=== PATIENT | female | born 1990 | race Caucasian/White ===

== ENCOUNTER 2018-02-11 09:23 | Observation (INO) | payer MEDICAID ==
[~2018-02-11] VITALS: Ht 162.6 cm; Wt 106.6 kg
[2018-02-11] MEDS ORDERED: PREN-380 PO (09:36)
[2018-02-11 09:41] VITALS: BP 139/66
== END 2018-02-11 14:45 | disposition home or self-care (01) ==
LOC: MLD 09:23
PROVIDERS: ADMIT Obstetrics & Gynecology; ATTEND Obstetrics & Gynecology
DX: O26.893 Other specified pregnancy related conditions, third trimester (principal); R10.2 Pelvic and perineal pain; O48.1 Prolonged pregnancy; Z3A.40 40 weeks gestation of pregnancy
CPT/HCPCS: 76805; 81000; G0378; Q0092

== ENCOUNTER 2018-02-15 05:50 | Inpatient (IN) | payer MEDICAID ==
[~2018-02-15] VITALS: Ht 165.1 cm; Wt 107.0 kg
[~2018-02-15 05:50] MED LIST: PREN-380 PO
[2018-02-15] MEDS ORDERED: AMPICILLIN 2,000 MG in NACL 0.9% MINI-BAG PLUS 100 ML IV SCH (06:40)
[2018-02-15] MEDS ORDERED: PROMETHAZINE 25 MG/ML VIAL IVP ONE (06:40)
[2018-02-15] MEDS ORDERED: NALBUPHINE 10 MG/ML AMP IVP PRN ×2 (06:40→13:00)
[2018-02-15] MEDS ORDERED: OXYTOCIN 10 UNITS/ML VIAL IM SCH (06:40)
[2018-02-15] MEDS ORDERED: LACTATED RINGERS 500 ML IV ONE (06:40)
[2018-02-15] MEDS ORDERED: OXYTOCIN 20 UNITS in LACTATED RINGERS 1,000 ML IV SCH (06:45)
[2018-02-15] MEDS ORDERED: FERR-252 PO (06:46)
[2018-02-15 07:24] VITALS: BP 113/74
[2018-02-15 07:32] LABS: BASOPHILS % (AUTO) 0.5 % (0.0-2.0); EOSINOPHILS # (AUTO) 0.1 K/uL (0-0.4); EOSINOPHILS % (AUTO) 1.7 % (0.0-4.0); HEMOGLOBIN 12.7 g/dL (12.0-16.0); LYMPHOCYTES # (AUTO) 2.4 K/uL (2.5-16.5); LYMPHOCYTES % (AUTO) 30.5 % (20.5-51.1); MEAN CORPUSCULAR HEMOGLOBIN 28 pg (27-31); MEAN CORPUSCULAR HGB CONC 34 g/dL (33-37); MEAN CORPUSCULAR VOLUME 83.3 fL (80-94); MONOCYTES # (AUTO) 0.4 K/uL (0.8-1.0); MONOCYTES % (AUTO) 5.5 % (1.7-9.3); NEUTROPHILS # (AUTO) 4.8 K/uL (1.8-7.7); NEUTROPHILS % (AUTO) 61.8 % (42.2-75.2); PLATELET COUNT (AUTO) 189 K/uL (140-450); RED BLOOD CELL COUNT(AUTO) 4.56 MIL/uL (4.20-5.40); RED CELL DISTRIBUTION WIDTH 16.1 % (11.6-13.7); WHITE BLOOD COUNT (AUTO) 7.7 K/uL (4.8-10.8)
[2018-02-15 07:34] LABS: BILIRUBIN,URINE NEGATIVE (NEGATIVE); BLOOD, URINE 3+ (NEGATIVE); COLOR,URINE YELLOW (YELLOW); LEUKOCYTE ESTERASE ,URINE NEGATIVE (NEGATIVE); NITRITE, URINE NEGATIVE (NEGATIVE); PH,URINE 6.5 (5.0-9.0); UGLUCOSE NEGATIVE (NEGATIVE)
[2018-02-15 07:47] LABS: BARBITURATE, URINE NEG. ng/ml (NEG <=200); BENZODIAZEPINE, URINE NEG. ng/mL (NEG <=200); CANNABINOID, URINE NEG. ng/mL (NEG <=50); COCAINE, URINE NEG. ng/mL (NEG <=300); OPIATE, URINE NEG. ng/mL (NEG <=2000); PHENCYCLIDINE SCREEN,URINE NEG. ng/mL (NEG <=25)
[2018-02-15 07:51] LABS: ANION GAP 16.7 (8-16); CARBON DIOXIDE 20.3 mmol/L (21-32); CREATININE 0.7 mg/dL (0.6-1.3)
[2018-02-15 07:57] LABS: ALBUMIN 2.4 g/dL (3.4-5.0); TOTAL BILIRUBIN 0.2 mg/dL (0.0-1.0)
[2018-02-15] MEDS ORDERED: AMPICILLIN 1,000 MG in NACL 0.9% MINI-BAG PLUS 50 ML IV SCH (08:00)
[2018-02-15 08:05] LABS: APPEARANCE,URINE SLIGHTLY HAZY (CLEAR); RBC,URINE 3-10 (FEW) /HPF (0-5); WBC,URINE 0-5 (RARE) /HPF (0-5)
--- NOTE | 2018-02-15 08:12 | NUR ---
PATIENT HAS BEEN SCREENED AND CATEGORIZED LOW RISK. PATIENT WILL BE SEEN WITHIN 7 DAYS OF ADMISSION. 02/22/[address], [facility]
[2018-02-15] MEDS ORDERED: PROMETHAZINE 25 MG/ML VIAL IVP SCH (08:35)
[2018-02-15] MEDS ORDERED: LACTATED RINGERS 500 ML IV SCH (08:35)
[2018-02-15] MEDS ORDERED: ROPIVACAINE 0.2%/NS PREMIX 250 ML EPI ONE (10:16)
[2018-02-15] MEDS: LACTATED RINGERS 1,000 ML IV SCH ×2 (10:40→10:41)
[2018-02-15] MEDS ORDERED: ROPIVACAINE 0.2%/NS PREMIX 250 ML EPI SCH (11:05)
[2018-02-15] MEDS ORDERED: AMPICILLIN 2,000 MG VIAL ONE (11:12)
[2018-02-15 11:18] LABS: RAPID PLASMA REAGIN NON-REACTIVE (Non Reactiv)
[2018-02-15] MEDS ORDERED: MORPHINE PRES FREE 2 MG/2 ML 2 mL UD SYRINGE ONE (12:11)
[2018-02-15] MEDS ORDERED: MIDAZOLAM 2 MG/2 ML VIAL ONE (12:11)
[2018-02-15] MEDS ORDERED: ceFAZolin 1,000 MG VIAL ONE ×2 (12:24→12:30)
[2018-02-15] MEDS ORDERED: OXYTOCIN 10 UNITS/ML VIAL ONE ×2 (12:29→12:30)
[2018-02-15] MEDS ORDERED: METHYLERGONOVINE 0.2 MG/ML AMP ONE ×2 (12:30→12:57)
[2018-02-15] MEDS ORDERED: diphenhydrAMINE 50 MG/ML VIAL IVP PRN ×2 (13:00)
[2018-02-15] MEDS ORDERED: CLINDAMYCIN PHOSPHATE 900MG/NS 50 ML IV SCH (13:00)
[2018-02-15] MEDS ORDERED: CLINDAMYCIN 900 MG in DEXTROSE 5% 100 ML IV SCH (13:00)
[2018-02-15] MEDS ORDERED: HYDROmorphone 1 MG/ML AMP IVP PRN (13:00)
[2018-02-15] MEDS ORDERED: ONDANSETRON 4 MG/2 ML VIAL IVP PRN ×2 (13:00)
[2018-02-15] MEDS ORDERED: MEPERIDINE 25 MG/ML SYR IVP PRN (13:00)
[2018-02-15] MEDS ORDERED: NALOXONE 0.4 MG/ML VIAL IVP PRN ×3 (13:00)
[2018-02-15] MEDS ORDERED: BLOOD GLUCOSE MONITORING 1 DEV DEV FS ONE (13:00)
[2018-02-15] MEDS ORDERED: ONDANSETRON 4 MG/2 ML VIAL ONE (13:31)
[2018-02-15] MEDS ORDERED: diphenhydrAMINE 50 MG/ML VIAL ONE (13:31)
[2018-02-15] MEDS: OXYTOCIN 20 UNITS in LACTATED RINGERS 1,000 ML IV SCH (13:55)
[2018-02-15] MEDS ORDERED: OXYTOCIN 20 UNITS/LR PREMIX 1,000 ML IV ONE (14:23)
[2018-02-15] MEDS ORDERED: OXYTOCIN 10 UNITS in LACTATED RINGERS 1,000 ML IV SCH (15:22)
[2018-02-15] MEDS ORDERED: MEASLES, MUMPS, AND RUBELLA 1 VIAL SQVAC PRN (15:25)
[2018-02-15] MEDS ORDERED: TEMAZEPAM 15 MG CAP PO PRN (15:25)
[2018-02-15] MEDS ORDERED: TRIMETHOBENZAMIDE 200 MG/2 ML SYR IM PRN (15:25)
[2018-02-15] MEDS ORDERED: METHYLERGONOVINE 0.2 MG/ML AMP IM PRN (15:25)
[2018-02-15] MEDS: KETOROLAC 30 MG/ML VIAL IM/IVP SCH ×2 (18:30→23:58)
[2018-02-15] MEDS: DOCUSATE SOD/SENNA 50/8.6 MG 1 TAB PO SCH (21:00)
[2018-02-16] MEDS: OXYTOCIN 20 UNITS in LACTATED RINGERS 1,000 ML IV SCH (01:40)
[2018-02-16] MEDS: KETOROLAC 30 MG/ML VIAL IM/IVP SCH ×2 (05:55→11:14)
[2018-02-16] MEDS: HYDROcodone/APAP 5/325 MG 1 TAB TAB PO PRN ×3 (09:59→21:08)
[2018-02-16] MEDS: SIMETHICONE 80 MG TAB.CHEW PO PRN (09:59)
[2018-02-16 20:04] LABS: BASOPHILS # (AUTO) 0.1 K/uL (0.00-0.22); BASOPHILS % (AUTO) 0.7 % (0.0-2.0); EOSINOPHILS # (AUTO) 0.1 K/uL (0-0.4); EOSINOPHILS % (AUTO) 0.9 % (0.0-4.0); HEMATOCRIT 33.4 % (36-48); HEMOGLOBIN 11.2 g/dL (12.0-16.0); LYMPHOCYTES # (AUTO) 2.5 K/uL (2.5-16.5); LYMPHOCYTES % (AUTO) 23.8 % (20.5-51.1); MEAN CORPUSCULAR HEMOGLOBIN 28 pg (27-31); MEAN CORPUSCULAR HGB CONC 33 g/dL (33-37); MEAN CORPUSCULAR VOLUME 83.5 fL (80-94); MONOCYTES # (AUTO) 0.4 K/uL (0.8-1.0); MONOCYTES % (AUTO) 4.1 % (1.7-9.3); NEUTROPHILS # (AUTO) 7.3 K/uL (1.8-7.7); NEUTROPHILS % (AUTO) 70.5 % (42.2-75.2); PLATELET COUNT (AUTO) 198 K/uL (140-450); WHITE BLOOD COUNT (AUTO) 10.4 K/uL (4.8-10.8)
[2018-02-16] MEDS: DOCUSATE SOD/SENNA 50/8.6 MG 1 TAB PO SCH (21:09)
[2018-02-16] MEDS ORDERED: IBUPROFEN 800 MG TAB PO PRN (23:55)
[2018-02-17] MEDS: oxyCODONE/APAP 5/325 MG 1 TAB TAB PO PRN ×5 (01:11→23:46)
[2018-02-17] MEDS: SIMETHICONE 80 MG TAB.CHEW PO PRN (10:29)
[2018-02-17] MEDS: HYDROcodone/APAP 5/325 MG 1 TAB TAB PO PRN (20:12)
[2018-02-17] MEDS: DOCUSATE SOD/SENNA 50/8.6 MG 1 TAB PO SCH (21:05)
[2018-02-18] MEDS: oxyCODONE/APAP 5/325 MG 1 TAB TAB PO PRN (08:08)
== END 2018-02-18 13:35 | disposition home or self-care (01) | DRG 540 ==
LOC: MLD 05:50 → MFCC 15:26
PROVIDERS: ADMIT Obstetrics & Gynecology; ATTEND Obstetrics & Gynecology
PROC: 00HU33Z Insertion of Infusion Device into Spinal Canal, Percutaneous Approach (ICD-10-PCS; 2018-02-15)
PROC: 3E0R3BZ Introduction of Anesthetic Agent into Spinal Canal, Percutaneous Approach (ICD-10-PCS; 2018-02-15)
PROC: 10D00Z1 Extraction of Products of Conception, Low, Open Approach (ICD-10-PCS; principal; 2018-02-15 12:30)
PROC: 3E0234Z Introduction of Serum, Toxoid and Vaccine into Muscle, Percutaneous Approach (ICD-10-PCS; 2018-02-17)
DX: O24.429 Gestational diabetes mellitus in childbirth, unspecified control (principal); E66.9 Obesity, unspecified; O36.63X0 Maternal care for excessive fetal growth, third trimester, not applicable or unspecified; O69.1XX0 Labor and delivery complicated by cord around neck, with compression, not applicable or unspecified; O99.214 Obesity complicating childbirth; Z3A.38 38 weeks gestation of pregnancy; Z37.0 Single live birth; Z23 Encounter for immunization; Z68.39 Body mass index [BMI] 39.0-39.9, adult
CPT/HCPCS: 36415; 51702; 76805; 80053; 80305; 81001; 82948; 85025; 86592; 86762; 86886; 86900; 86901; 87340; 90715; J0290; J0690; J1200; J1885; J2210; J2250; J2270; J2405; J2590; J2795; J3490; J7060; J7120; Q0092